=== PATIENT | female | born 1980 | race Caucasian/White ===

== ENCOUNTER 2022-12-23 17:58 | Emergency (ER) | payer OTHER, BC ==
[2022-12-23] MEDS ORDERED: Ketorolac 30 MG/ML SDV IM ONE (19:07)
[2022-12-23] MEDS ORDERED: Acetaminophen/oxyCODONE 325-5 MG Tab PO ONE (19:08)
[2022-12-23 19:36] LABS: ANION GAP 12.1 mmol/L (5.0-14.0); CALCIUM 9.2 mg/dL (8.5-10.1); CREATININE 0.9 mg/dL (0.6-1.0); EST CRCL DRUG DOSING (CG) 57.89 mL/min; POTASSIUM,K 4.1 mmol/L (3.6-5.2)
[2022-12-23] MEDS ORDERED: Bacitracin Oint 1 GM U/D Packet TOP ONE (19:55)
== END 2022-12-23 20:32 | disposition home or self-care (01) ==
LOC: JP.ED 17:58
DX: S43.102A Unspecified dislocation of left acromioclavicular joint, initial encounter (principal); S63.601A Unspecified sprain of right thumb, initial encounter; S40.812A Abrasion of left upper arm, initial encounter; S80.212A Abrasion, left knee, initial encounter; Z91.040 Latex allergy status; Z88.2 Allergy status to sulfonamides; Z88.8 Allergy status to other drugs, medicaments and biological substances; V28.99XA Unspecified rider of other motorcycle injured in noncollision transport accident in traffic accident, initial encounter; Y93.55 Activity, bike riding; Y92.830 Public park as the place of occurrence of the external cause
CPT/HCPCS: 36415; 73030; 73050; 73130; 80048; 96372; 99283; A9270; J1885